=== PATIENT | female | born 1945 | race Caucasian/White ===

== ENCOUNTER → 2019-08-28 09:18 | Outpatient (CLI) | payer MEDICARE, SELFPAY ==
[2019-08-28 11:53] LABS: Anion Gap 10.2 mEq/L (5-15); Blood Urea Nitrogen 25 mg/dL (7-18); Carbon Dioxide 35 mmol/L (21.0-32.0); Chloride 101 mmol/L (98-107); Creatinine,Serum 0.73 mg/dL (0.55-1.02); Estimated Glomerular Filt Rate 78 ml/min (>60); GFR (African American) 94 ML/MIN (>60); Glucose 140 mg/dL (74-106); Potassium 3.2 mmoL/L (3.5-5.1); Sodium 143 mmol/L (136-145)
[2019-08-28 12:12] LABS: Calcium 13.5 mg/dL (8.5-10.1)
== END ==
PROVIDERS: Visit Provider Internal Medicine Adolescent Medicine
DX: E83.52 Hypercalcemia (principal)
CPT/HCPCS: 80048; 82330